=== PATIENT | male | born 1985 | race Hispanic/Latino ===

== ENCOUNTER 2019-11-02 15:23 | Inpatient (IN) | payer SELFPAY ==
[2019-11-02] MEDS ORDERED: Ondansetron PF 4 MG/2 ML Vial ONE (15:27)
[2019-11-02] MEDS ORDERED: Fentanyl 100 MCG/2 ML VIAL ONE (15:27)
[2019-11-02] MEDS ORDERED: Adacel (T-DAP) 0.5 ML SYRINGE ONE (15:42)
--- NOTE | 2019-11-02 15:45 | RAD ---
Radiograph right femur 2 views: DATE: 11/02/2019 Time: 3:30 PM HISTORY: 34-year-old male status post acute trauma. FINDINGS: Comminuted fracture of distal femoral metaphysis. A proxy 75% bone width posterior displacement and 5 0% bone width medial displacement of major distal fragment, which includes the femoral condyles. The fracture lucencies do not appear to extend into the femoral condyles. Multiple rotated and displa ahmet butterfly fracture fragments. Mid shaft and proximal femur are intact. IMPRESSION: Acute, traumatic, comminuted, and displaced distal femoral metaphyseal fracture.
[2019-11-02 15:48] LABS: #Basophils 0.1 thou/uL (0.0-0.2); #Eosinphils 0.1 thou/uL (0.0-0.7); #Lymphocytes 2.3 thou/uL (1.20-3.40); #Neutrophils 12.4 thou/uL (1.40-6.50); %Basophils 0.4 % (0.0-1.0); %Eosinophils 0.9 % (0.0-10.0); %Lymphocytes 14.5 % (21.0-51.0); %Monocytes 6.3 % (0.0-10.0); Hemoglobin 14.9 g/dL (14.0-18.0); Mean Corpuscular HGB CONC 35.5 g/dL (32.0-36.0); Mean Corpuscular Hemoglobin 29.4 pg (27.0-31.0); Mean Corpuscular Volume 82.8 fL (78.0-98.0); Mean Platelet Volume 9.5 fL (7.4-10.4); Platelet Count 267 thou/uL (130-400); RBC Distribution Width 12.1 % (11.5-14.5); Red Blood Cell (RBC) Count 5.09 mill/uL (4.70-6.10); White Blood Cell (WBC) Count 15.9 thou/uL (4.8-10.8)
--- NOTE | 2019-11-02 15:50 | RAD ---
RADIOGRAPH CHEST 1 VIEW: Supine DATE: 11/02/2019 HISTORY: 34-year-old male status post acute traumatic injury with femoral fracture. Preoperative clearance. FINDINGS: There is no airspace density or pulmonary edema. Right lateral costophrenic angle excluded from field -of-view. The left lateral costophrenic angles is sharp. Supine positioning makes this study insensitive for the detection of pneumothorax. IMPRESSION: No acute pulmonary findings.
--- NOTE | 2019-11-02 15:51 | RAD ---
Radiograph pelvis one view: Streaky: 34-year-old male status post acute traumatic injury with pelvic pain FINDINGS: Pelvic ring appears to be grossly intact with no evidence of grossly displaced fracture. No dislocati on of the hips. Rotated to the left. IMPRESSION: Negative
[2019-11-02 15:55] LABS: INR-International Normal Ratio 0.9; Prothrombin Time 12.6 SEC (12.0-14.7)
[2019-11-02 15:58] LABS: PTT 20.9 SEC (22.9-36.1)
[2019-11-02 16:09] LABS: ALT (SGPT) 43 U/L (8-55); AST (SGOT) 19 U/L (5-34); Albumin 4.1 g/dL (3.5-5.0); Alkaline Phosphatase 133 U/L (40-110); Anion Gap 17 mmol/L (10-20); BUN (Urea Nitrogen) 17 mg/dL (8.9-20.6); Bilirubin, Total 0.7 mg/dL (0.2-1.2); Calc. Creatinine Clearance 0 mL/min (70-130); Calcium 9.1 mg/dL (7.8-10.44); Carbon Dioxide 21 mmol/L (22-29); Chloride 100 mmol/L (98-107); Estimated GFR-MDRD 48; Globulin 3.4 g/dL (2.4-3.5); Glucose 451 mg/dL (70-105); Lipase 24 U/L (8-78); Potassium 5.1 mmol/L (3.5-5.1); Protein, Total 7.5 g/dL (6.0-8.3); Sodium 133 mmol/L (136-145)
[2019-11-02] MEDS ORDERED: Morphine 4 MG/ML VIAL ONE (16:27)
[2019-11-02 16:29] LABS: INR-International Normal Ratio 0.9; PTT 21.7 SEC (22.9-36.1); Prothrombin Time 12.6 SEC (12.0-14.7)
[2019-11-02] MEDS ORDERED: CEFAZOLIN 2 GM in Premix Bag 1 BAG IVPB SCH ×2 (16:30→18:15)
[2019-11-02] MEDS ORDERED: Ondansetron PF 4 MG/2 ML Vial IVP PRN ×2 (16:38→18:17)
[2019-11-02] MEDS ORDERED: Morphine 2 MG/ML SYRINGE SLOW IVP PRN ×2 (16:38→18:16)
[2019-11-02] MEDS ORDERED: Morphine 4 MG/ML VIAL SLOW IVP PRN ×2 (16:38→18:16)
[2019-11-02] MEDS ORDERED: Dextrose 5% in Water 1,000 ML IV PRN ×2 (16:38→18:15)
[2019-11-02] MEDS ORDERED: Dextrose 50% Abboject 50 ML SYRINGE SLOW IVP PRN ×2 (16:38→18:15)
[2019-11-02] MEDS ORDERED: Ondansetron ODT 4 MG TAB PO PRN ×2 (16:38→18:16)
[2019-11-02] MEDS ORDERED: HumaLOG 300 UNITS/3 ML VIAL SC PRN (16:38)
[2019-11-02] MEDS ORDERED: Acetaminophen/Codeine 30-300mg Tablet PO PRN ×3 (16:41→18:17)
[2019-11-02] MEDS ORDERED: Cyclobenzaprine 10 MG TAB PO PRN ×2 (16:41→18:18)
[2019-11-02 17:16] LABS: Bilirubin Negative (Negative); Blood, Urine Negative (Negative); Clarity Clear (Clear); Glucose, Urine (Dipstick) Greater than 1000 mg/dL (Negative); Leukocyte Negative Leu/uL (Negative); Nitrite Negative (Negative); Protein, Urine (Dipstick) 20 mg/dL (Neg-Trace); Urobilinogen Normal mg/dL (Less than 2)
[2019-11-02] MEDS ORDERED: Acetaminophen 500 MG TAB PO SCH (18:00)
[2019-11-02] MEDS ORDERED: Sodium Chloride 0.9% 1,000 ML IV SCH ×2 (18:02→23:50)
[2019-11-02 18:04] VITALS: BMI 38.6
[2019-11-02] MEDS: Sodium Chloride 0.9% 1,000 ML IV SCH (18:24)
[2019-11-02 19:41] LABS: Lactic Acid 1.9 mmol/L (0.5-2.2)
[2019-11-02] MEDS: Famotidine 20 MG TAB PO SCH (20:48)
[2019-11-02] MEDS: Gabapentin 300 MG CAP PO SCH (20:49)
[2019-11-02] MEDS: Senokot S 8.6-50 MG TAB PO SCH (20:49)
[2019-11-02] MEDS: HumaLOG 300 UNITS/3 ML VIAL SC PRN (20:50)
[2019-11-02] MEDS ORDERED: Famotidine 20 MG TAB PO SCH (21:00)
[2019-11-02] MEDS ORDERED: Gabapentin 300 MG CAP PO SCH (21:00)
[2019-11-02] MEDS ORDERED: Senokot S 8.6-50 MG TAB PO SCH (21:00)
[2019-11-02] MEDS ORDERED: traMADol HCl 50 MG TAB PO PRN ×2 (21:15)
--- NOTE | 2019-11-03 00:07 | PRG ---
DATE OF SERVICE: 11/02/2019 SUBJECTIVE: The patient is currently on the surgical floor. He is admitted earlier this afternoon, status post having a pipe at a construction site land on his right leg. The patient was brought to the emergency department, where he underwent evaluation and examination and was noted to have a closed right distal femur fracture. Currently, he is awaiting surgery tomorrow. He is in a knee immobilizer with Barakat traction. His pain was not adequately controlled initially. We have made adjustments and has since improved markedly. He was able to tolerate a diet. Order is currently for n.p.o. after midnight. PHYSICAL EXAMINATION: VITAL SIGNS: Stable. The patient is afebrile. GENERAL: The patient is resting comfortably in bed. He was asleep at the time of my visit, but did wake up briefly and did tell me that his pain is better controlled now. LUNGS: Clear to auscultation bilaterally. HEART: Regular rate and rhythm. ABDOMEN: Soft, nontender with active bowel sounds. EXTREMITIES: Neurovascularly intact x4. Right lower extremity is immobilized with a well fitted knee immobilizer and Barakat traction applied. ASSESSMENT AND PLAN: 1. Status post crush injury to right thigh. 2. Comminuted displaced distal femur fracture. 3. Acute pain secondary to above. 4. History of diabetes. Plan will be to continue supportive care. The patient is on a moderate sliding scale insulin for his hyperglycemia. Continue pain control, pulmonary toilet, gastritis and mechanical VTE prophylaxis. The patient postoperatively will begin physical and occupational therapy, and we will discuss placement at that time. Job ID: [id number]
[2019-11-03] MEDS: Acetaminophen 500 MG TAB PO SCH ×4 (00:28→17:47)
[2019-11-03] MEDS: Sodium Chloride 0.9% 1,000 ML IV SCH ×2 (00:29→17:14)
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
[2019-11-03] MEDS: Cyclobenzaprine 10 MG TAB PO PRN (05:31)
[2019-11-03] MEDS: HumaLOG 300 UNITS/3 ML VIAL SC PRN (05:31)
[2019-11-03 06:16] LABS: #Basophils 0.1 thou/uL (0.0-0.2); #Eosinphils 0.3 thou/uL (0.0-0.7); #Monocytes 1.1 thou/uL (0.11-0.59); #Neutrophils 8.5 thou/uL (1.40-6.50); %Basophils 0.4 % (0.0-1.0); %Eosinophils 2.2 % (0.0-10.0); %Lymphocytes 23.1 % (21.0-51.0); %Monocytes 8.1 % (0.0-10.0); %Neutrophils 66.2 % (42.0-75.0); Hemoglobin 13.9 g/dL (14.0-18.0); Mean Corpuscular HGB CONC 34.5 g/dL (32.0-36.0); Mean Corpuscular Hemoglobin 29.2 pg (27.0-31.0); Mean Corpuscular Volume 84.7 fL (78.0-98.0); Mean Platelet Volume 9.6 fL (7.4-10.4); Platelet Count 248 thou/uL (130-400); RBC Distribution Width 12.2 % (11.5-14.5); Red Blood Cell (RBC) Count 4.76 mill/uL (4.70-6.10); White Blood Cell (WBC) Count 12.9 thou/uL (4.8-10.8)
[2019-11-03 06:40] LABS: Phosphorus 3.7 mg/dL (2.3-4.7)
[2019-11-03 06:41] LABS: Anion Gap 12 mmol/L (10-20); BUN (Urea Nitrogen) 15 mg/dL (8.9-20.6); Calc. Creatinine Clearance 168 mL/min (70-130); Calcium 8.4 mg/dL (7.8-10.44); Carbon Dioxide 25 mmol/L (22-29); Chloride 102 mmol/L (98-107); Estimated GFR-MDRD 85; Glucose 230 mg/dL (70-105); Magnesium 1.7 mg/dL (1.6-2.6); Potassium 4.2 mmol/L (3.5-5.1); Sodium 135 mmol/L (136-145)
[2019-11-03] MEDS ORDERED: Promethazine HCl 25 MG/ML VIAL IM PRN ×2 (07:20→07:33)
[2019-11-03] MEDS ORDERED: Promethazine HCl 25 MG/ML VIAL SLOW IVP PRN (07:20)
[2019-11-03] MEDS ORDERED: Ondansetron HCl/PF 4 MG/2 ML Vial IVP PRN (07:20)
[2019-11-03] MEDS ORDERED: Fentanyl 100 MCG/2 ML VIAL ONE ×2 (07:21→10:13)
[2019-11-03] MEDS ORDERED: Midazolam HCl 2 mg/2 ml Vial ONE (07:21)
[2019-11-03] MEDS ORDERED: Zolpidem Tartrate 5 MG TAB PO PRN (07:33)
[2019-11-03] MEDS ORDERED: fentaNYL Citrate/PF 2,000 MCG in Sodium Chloride 0.9% 60 ML IV PRN (07:33)
[2019-11-03] MEDS ORDERED: Naloxone HCl 0.4 mg/ml Vial IV PRN (07:33)
[2019-11-03] MEDS ORDERED: diphenhydrAMINE 50 MG/ML VIAL IM PRN (07:33)
[2019-11-03] MEDS ORDERED: Ondansetron PF 4 MG/2 ML Vial IVP PRN (07:33)
[2019-11-03] MEDS ORDERED: diphenhydrAMINE 25 MG CAP PO PRN (07:33)
[2019-11-03] MEDS ORDERED: diphenhydrAMINE 50 MG/ML VIAL IVP PRN (07:33)
[2019-11-03] MEDS ORDERED: Communication Order-Pharmacy FS SCH (07:45)
[2019-11-03] MEDS ORDERED: Polyethylene Glycol 3350 17 GM Packet PO SCH (09:00)
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
--- NOTE | 2019-11-03 11:22 | OP ---
DATE OF PROCEDURE: 11/03/2019 PREOPERATIVE DIAGNOSIS: Right supracondylar distal femur fracture. POSTOPERATIVE DIAGNOSIS: Right supracondylar distal femur fracture. PROCEDURE PERFORMED: Open reduction and internal fixation of right distal femur. ANESTHESIA: General. CAR REFINISHER: Grover Toledo PA-C TOURNIQUET TIME: Zero. ESTIMATED BLOOD LOSS: 150 mL. IMPLANT: Synthes 8-hole 4.5-mm variable angle LCP curved condylar distal femur plate. COMPLICATIONS: None. DRAINS: None. OUTCOME: Satisfactory. INDICATIONS FOR PROCEDURE: The patient is a 34-year-old gentleman, who sustained a work injury with right supracondylar distal femur fracture. After discussion with the patient including risks and benefits, we have decided to proceed with open reduction and internal fixation of the right distal femur. Informed consent has been obtained. I believe, all questions answered. DESCRIPTION OF PROCEDURE: The patient was brought to the operating room and a time-out performed, followed by induction of general anesthesia. Next, the patient was positioned supine on the OR table with the injured right leg held on a foam ramp and then a sterile prep and drape performed of this right lower extremity. Next, a vertical incision was made extending from the lateral joint line proximally along the lateral path of the femur. After skin was sharply incised, dissection was carried down to the underlying tensor fascia. The structure was incised in line with skin incision and reflecting it anteriorly and posteriorly, gaining access to the distal lateral femur as well as the vastus lateralis. A subvastus approach to the lateral femur was then performed. At this point, some further soft tissue was freed from around the fracture edges and then the fracture was reduced under direct visualization. Once held reduced, rigid K-wires were used to get provisional stabilization of the fracture. Next, AP and lateral C-arm images were obtained that showed acceptable alignment of the fracture. Given this alignment, an 8-hole 4.5-mm variable angle LCP curved condylar plate was applied to the lateral cortex of the femur and under C-arm guidance, it was positioned appropriately and then pinned distally holding it against the condyles and then proximally a 4.5-mm cortical screw was used in the proximal-most hole to affix the plate to the femur. This was then followed by multiple 5-mm locking screws in the distal fragment and a total of three 4.5-mm locking screws proximally. This resulted in very rigid fixation and anatomic alignment of the fracture. Final AP and lateral C-arm images were then obtained and then the wound irrigated with bulb syringe, then closed in layers. A #1 Vicryl was used for the tensor fascia and fascia over the vastus lateralis. This was followed by 2-0 Vicryl and leonard for the skin. Xeroform gauze, Webril, and Torres wrap dressing applied to the thigh. The leg was then placed in a knee immobilizer. The patient was then transferred to recovery room in stable condition. There were no complications. He tolerated this procedure well. Job ID: [id number]
--- NOTE | 2019-11-03 11:50 | RAD ---
RIGHT FEMUR 2 VIEWS: Date: 11/03/2019 HISTORY: Open reduction and internal fixation. COMPARISON: Radiograph prior day. FINDINGS: Satisfactory postoperative appearance of lateral plate and screw fixation of distal femur. IMPRESSION: Satisfactory postoperative appearance. POS: HOME
[2019-11-03] MEDS ORDERED: Lidocaine 1% PF 5 ML VIAL ONE (12:00)
[2019-11-03] MEDS ORDERED: Glycopyrrolate 0.2 MG/ML 5 ML SYRINGE ONE (12:00)
[2019-11-03] MEDS ORDERED: Ondansetron PF 4 MG/2 ML Vial ONE (12:00)
[2019-11-03] MEDS ORDERED: PROPOFOL 200 MG/20 ML VIAL ONE (12:00)
[2019-11-03] MEDS ORDERED: Metoclopramide HCl 10 MG/2 ML VIAL ONE (12:00)
[2019-11-03] MEDS ORDERED: Succinylcholine Chloride 20 MG/ML 10 ml SYRINGE FS ONE (12:00)
[2019-11-03] MEDS ORDERED: Rocuronium Bromide 10 MG/ML (10ML VIAL) ONE (12:00)
[2019-11-03] MEDS: CEFAZOLIN 2 GM in Premix Bag 1 BAG IVPB SCH ×2 (13:46→21:19)
[2019-11-03] MEDS: Ketorolac Tromethamine 30 MG/ML VIAL IVP SCH ×2 (13:47→17:48)
--- NOTE | 2019-11-03 16:49 | PRG ---
DATE OF SERVICE: 11/03/2019 SUBJECTIVE: Mr. Delaney is a 34-year-old male status post crush injury at work. He sustained a closed right distal femur fracture. He has a history of diabetes type 2. This morning, the patient is alert and awake. GCS 15. Vital signs stable. He makes good urine. The patient has a plan to go to the OR with Dr. Bahena for right distal femur fracture this morning. Currently patient lying in bed comfortable with no acute respiratory distress. OBJECTIVE: VITAL SIGNS: Temperature 97.9, heart rate 77, respiratory rate 18, O2 saturation 100 on room air, blood pressure 140/90. LUNGS: Clear bilaterally. HEART: Regular rate and rhythm. ABDOMEN: Soft, nondistended. EXTREMITIES: Neurovascularly intact x4. The right lower extremity on a knee immobilizer and tractor. No sign of compartment syndrome. ASSESSMENT: 1. Status post crush injury at work. 2. Closed right distal femur fracture. Await for surgery. 3. History of diabetes type 2. PLAN: Continue supportive care, continue pain control. The patient will go to the OR with Dr. Bahena for closed right distal femur fracture fixation. Postop, the patient will need to work with physical therapy, occupational therapy. Anticipate placement in rehabilitation facility. Job ID: [id number] [facility]
[2019-11-03] MEDS: Famotidine 20 MG TAB PO SCH ×2 (17:11→21:20)
[2019-11-03] MEDS: Gabapentin 300 MG CAP PO SCH ×2 (17:11→21:20)
[2019-11-03] MEDS: Polyethylene Glycol 3350 17 GM Packet PO SCH (17:12)
[2019-11-03] MEDS: Senokot S 8.6-50 MG TAB PO SCH ×2 (17:12→21:20)
[2019-11-03] MEDS: Insulin Regular 300 UNITS/3 ML VIAL SC PRN ×2 (17:57→21:18)
[2019-11-03] MEDS ORDERED: Acetaminophen 500 MG TAB PO SCH (21:15)
[2019-11-03] MEDS ORDERED: traMADol HCl 50 MG TAB PO SCH (21:15)
[2019-11-03] MEDS: Ibuprofen 600 MG TAB PO SCH (21:20)
--- NOTE | 2019-11-03 23:49 | PRG ---
DATE OF SERVICE: 11/03/2019 SUBJECTIVE: The patient is hospital day #2 immediately postop from an open reduction and internal fixation of right supracondylar distal femur fracture. The patient was admitted yesterday status post construction site injury in which a plate fell on his right thigh. This morning, he underwent his operative intervention, which he has tolerated. 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 The patient was able to work with Physical Therapy today. He is tolerating a diet. PHYSICAL EXAMINATION: VITAL SIGNS: Stable. The patient is afebrile. GENERAL: The patient is resting comfortably in bed. He is awake, alert, and oriented. Clayton Coma Scale is 15. LUNGS: Clear to auscultation bilaterally. HEART: Regular rate and rhythm. ABDOMEN: Soft, nontender with active bowel sounds. EXTREMITIES: Neurovascularly intact x4. The patient has a clean, dry, and intact dressing on his right lower extremity with a knee immobilizer in place. ASSESSMENT/PLAN: 1. Status post crush injury to right thigh. 2. Status post open reduction and internal fixation of right supracondylar distal femur fracture. 3. History of diabetes. PLAN: Will be to continue supportive care. We will discontinue his [employer]EN[employer]AL OFFICE SUPERVISOR and transition him to oral pain medications. Encourage physical and occupational therapy and the patient will likely be able to be discharged home in the next 24 to 48 hours. Job ID: [id number]
[2019-11-04] MEDS: Cyclobenzaprine 10 MG TAB PO PRN (00:16)
[2019-11-04] MEDS: traMADol HCl 50 MG TAB PO SCH ×4 (03:18→20:53)
[2019-11-04] MEDS: Acetaminophen 500 MG TAB PO SCH ×4 (03:19→20:52)
[2019-11-04] MEDS: CEFAZOLIN 2 GM in Premix Bag 1 BAG IVPB SCH (05:12)
[2019-11-04] MEDS: Ibuprofen 600 MG TAB PO SCH ×3 (05:12→20:52)
[2019-11-04] MEDS: Insulin Regular 300 UNITS/3 ML VIAL SC PRN ×3 (05:23→20:56)
[2019-11-04 08:43] LABS: #Eosinphils 0.3 thou/uL (0.0-0.7); #Lymphocytes 2.5 thou/uL (1.20-3.40); #Monocytes 1.1 thou/uL (0.11-0.59); #Neutrophils 8.2 thou/uL (1.40-6.50); %Basophils 0.4 % (0.0-1.0); %Eosinophils 2.8 % (0.0-10.0); %Lymphocytes 20.7 % (21.0-51.0); %Monocytes 9.1 % (0.0-10.0); Hemoglobin 12.3 g/dL (14.0-18.0); Mean Corpuscular HGB CONC 33.8 g/dL (32.0-36.0); Mean Corpuscular Hemoglobin 28.8 pg (27.0-31.0); Mean Corpuscular Volume 85.3 fL (78.0-98.0); Mean Platelet Volume 8.7 fL (7.4-10.4); Platelet Count 224 thou/uL (130-400); RBC Distribution Width 12.1 % (11.5-14.5); Red Blood Cell (RBC) Count 4.27 mill/uL (4.70-6.10); White Blood Cell (WBC) Count 12.2 thou/uL (4.8-10.8)
[2019-11-04 08:50] LABS: Hemoglobin A1c 8.2 % (4.0-6.0)
[2019-11-04] MEDS: Polyethylene Glycol 3350 17 GM Packet PO SCH (09:19)
[2019-11-04] MEDS: Gabapentin 300 MG CAP PO SCH ×2 (09:19→20:52)
[2019-11-04] MEDS: Senokot S 8.6-50 MG TAB PO SCH ×2 (09:23→20:52)
[2019-11-04] MEDS: Famotidine 20 MG TAB PO SCH ×2 (09:24→20:52)
--- NOTE | 2019-11-04 13:34 | PRG ---
DATE OF SERVICE: 11/04/2019 SUBJECTIVE: Mr. Delaney is a 34-year-old male, status post crush injury at work. He has sustained a closed right distal femur fracture. He underwent ORIF of right distal femur fracture yesterday. The patient tolerated with procedure well postop. The patient is doing good. Yesterday, he did walk with physical therapy around the room. Today, he is able to walk ground level 50 feet 2 times. 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 The patient will plan to work on stair tomorrow. The patient tolerated with regular diet. Vital signs are stable. Urine is adequate. OBJECTIVE: GENERAL: The patient is lying in bed comfortable with no acute respiratory distress. VITAL SIGNS: Temperature 97.9, heart rate 84, respiratory rate is 16, O2 saturation 98% on room air, and blood pressure 126/79. LUNGS: Clear bilaterally. HEART: Regular rate and rhythm. ABDOMEN: Soft, nondistended. EXTREMITIES: Postop dressing is dry, clean, intact. NEUROLOGIC: No focal neurology deficits. ASSESSMENT: 1. Status post crush injury at work. 2. Closed right distal femur fracture, status post open reduction and internal fixation of right closed distal femur fracture. 3. History of diabetes type 2, uncontrolled. PLAN: Continue supportive care. Continue pain control. Continue DVT prophylaxis and encourage working with physical therapy and occupational therapy. Anticipate discharge home in the next 24 to 48 hours. The patient was seen and evaluated with Dr. Haines on round this morning. Job ID: [id number]
[2019-11-04] MEDS ORDERED: Enoxaparin Sodium 40 MG/0.4 ML SYRINGE SC SCH (21:00)
--- NOTE | 2019-11-05 01:34 | PRG ---
DATE OF SERVICE: 11/05/2019 SUBJECTIVE: The patient remains on the surgical floor. He is hospital day #3, postop day #1, status post open reduction and internal fixation of right supracondylar distal femur fracture. The patient has been working with physical and occupational therapy and today is being evaluated for the possibility of inpatient rehab and awaiting workman's comp approval. The patient is tolerating a diet. His pain is controlled. PHYSICAL EXAMINATION: VITAL SIGNS: Stable. The patient is afebrile. The patient is making adequate urine. ABDOMEN: His bowel function has not returned yet. GENERAL: The patient is resting comfortably in bed. He is awake, alert, conversant, and appropriate. RESPIRATIONS: Nonlabored. EXTREMITIES: Neurovascularly intact x4. His right knee immobilizer is in place. Dressing appears to be clean, dry, and intact beneath it. ASSESSMENT AND PLAN: 1. Status post crush injury to right thigh. 2. Status post open reduction and internal fixation of right supracondylar distal femur fracture, postop day #1. 3. History of diabetes. Plan will be to continue supportive care. Encourage physical and occupational therapy. Continue sliding scale insulin and await placement decision. Job ID: [id number]
[2019-11-05] MEDS: Acetaminophen 500 MG TAB PO SCH ×2 (03:33→09:16)
[2019-11-05] MEDS: traMADol HCl 50 MG TAB PO SCH ×2 (03:33→09:16)
[2019-11-05] MEDS: Ibuprofen 600 MG TAB PO SCH ×2 (05:23→13:47)
[2019-11-05] MEDS: Insulin Regular 300 UNITS/3 ML VIAL SC PRN ×2 (05:23→11:28)
[2019-11-05 07:42] VITALS: TEMP 98.1
[2019-11-05] MEDS: Senokot S 8.6-50 MG TAB PO SCH (09:16)
[2019-11-05] MEDS: Gabapentin 300 MG CAP PO SCH (09:16)
[2019-11-05] MEDS: Polyethylene Glycol 3350 17 GM Packet PO SCH (09:18)
[2019-11-05 11:15] VITALS: BP 126/83
[2019-11-05] MEDS ORDERED: Enoxaparin Sodium 30 MG/0.3 ML SYRINGE SC SCH (21:00)
--- NOTE | 2019-11-06 04:53 | DIS ---
DATE OF ADMISSION: 11/02/2019 DATE OF DISCHARGE: 11/05/2019 ADMISSION DIAGNOSIS: Crush injury to right leg at work, right distal femur fracture. DISCHARGE DIAGNOSIS: Crush injury to right leg at work, right distal femur fracture. CONSULTING PHYSICIAN: Dr. Bahena of orthopedic surgery. PROCEDURES: The patient went to the OR on November 03, 2019 and had an ORIF of the right distal femur. HOSPITAL COURSE: The patient is a 34 -year-old male presented to the emergency department after a pipe fell on his leg causing him to be crushed by the pipe. Upon evaluation, he was found to have a right distal femur fracture. He went to the OR with Orthopedic surgery on the and had an ORIF of the right distal femur. Postoperatively, he worked with Physical and Occupational Therapy and he was deemed safe to be discharged home with a walker. He was also discharged with Lovenox for DVT prophylaxis x2 weeks. At the time of discharge, the patient's pain was well controlled. He was tolerating a regular diet and he was moving around safely with a walker. DISCHARGE DISPOSITION: Home. DISCHARGE CONDITION: Satisfactory. PHYSICAL EXAMINATION: VITAL SIGNS: Temperature 98.1, pulse 56, respirations 16, oxygen saturation 96 % on room air, blood pressure 129/86. GENERAL: Well-appearing young male, sitting up in bed with no signs of acute distress. PULMONARY: Equal chest rise and fall. Clear breath sounds bilaterally. No signs of acute respiratory distress. CARDIAC: Regular rate and rhythm. GASTROINTESTINAL: Soft, nontender, nondistended. EXTREMITIES: 2+ pulses in all extremities. Gross motor and sensation are intact. No significant swelling noted. NEUROLOGY: GCS is 15. DISCHARGE INSTRUCTIONS: The patient was discharged home nonweightbearing to his right lower extremity, has a diabetic diet and a walker. DISCHARGE MEDICATIONS: Include: 1. Tylenol. 2. Flexeril. 3. Lovenox 30 mg subcu b.i.d. x14 days. 4. Gabapentin. 5. Ibuprofen. 6. MiraLAX. 7. Tramadol x14 days. The [facility] was accessed and the patient had no concerning medications after a search was completed. Subsequently, he received a prescription for 56 gm of tramadol for a total of 14 days. FOLLOWUP APPOINTMENTS: The patient is to follow up with Dr. Bahena. No need for followup with Trauma Surgery. This is a summary of the patient's hospitalization. For full details, please see his medical record in its entirety. The patient was evaluated by Dr. Haines and myself on the day of discharge. Job ID: [id number] MTDD
--- NOTE | 2019-11-06 08:12 | PQF ---
CYRUS ONEILL ANTHONY, MD [id number] [place] [id number] CLINICAL DOCUMENTATION CLARIFICATION FORM: POST DISCHARGE Addendum to original discharge summary date: ____ Late entry note date: __ DATE:11/06/2019 ATTN:Jamar Bahena Please exercise your independent, professional judgment in responding to the clarification form. Clinical indicators are provided on the bottom of this form for your review Please check appropriate box(s): [ ] Associated Diagnosis: Hyponatremia [ ] Not clinically significant laboratory findings [ ] Other diagnosis [ ] Unable to determine In addition, please specify: Present on Admission (POA): [ ] Yes [ ] No [ ] Unable to determine For continuity of documentation, please document condition throughout progress notes and discharge summary. Thank You. CLINICAL INDICATORS - SIGNS / SYMPTOMS/ LABS are present in the medical record: Labs Sodium: 11/0175=163 11/0206=284 Vitals signs: Bxkta=006 Respi=24 HB=512/90 PN 11/02 "s/p crushing injury at work" HP 11/01 "complains of pain 04/11": RISK FACTORS ED Notes 11/01-DM ED Notes 11/01-Smoker DS 11/04-Right distal femur fracture DS 11/04-s/p ORIF TREATMENT Laboratory Monitoring-Collected 11/01 IVF-MAR 11/01 Sodium Chloride 1000ml IV-SEP 04 (This form is maintained as a part of the permanent medical record) 2014 [employer]. All Rights Reserved Jing [email or web address] [phone] MTDD
== END 2019-11-05 14:15 | DRG 482 ==
LOC: ERS 15:23 → SURG A 16:38 → ERS 17:28
PROVIDERS: ADMIT Specialist; ATTEND Specialist
PROC: 3E0234Z Introduction of Serum, Toxoid and Vaccine into Muscle, Percutaneous Approach (ICD-10-PCS; 2019-11-02)
PROC: 0QSB04Z Reposition Right Lower Femur with Internal Fixation Device, Open Approach (ICD-10-PCS; principal; 2019-11-03)
PROC: 8E0YXBZ Computer Assisted Procedure of Lower Extremity (ICD-10-PCS; 2019-11-03)
DX: S72.451A Displaced supracondylar fracture without intracondylar extension of lower end of right femur, initial encounter for closed fracture (principal); Y93.H3 Activity, building and construction; Z79.84 Long term (current) use of oral hypoglycemic drugs; Z23 Encounter for immunization; F17.210 Nicotine dependence, cigarettes, uncomplicated; E11.65 Type 2 diabetes mellitus with hyperglycemia; W23.0XXA Caught, crushed, jammed, or pinched between moving objects, initial encounter
CPT/HCPCS: 36415; 36416; 71045; 72170; 76000; 80048; 80053; 81003; 82550; 83036; 83605; 83690; 83735; 84100; 85025; 85610; 85730; 86850; 86900; 86901; 90471; 90715; 96374; 96375; C1713; C1769; G0390; J0690; J1650; J1815; J1885; J2001; J2250; J2270; J2405; J2704; J2765; J3010